=== PATIENT | female | born 1935 | race Caucasian/White ===

== ENCOUNTER 2017-06-23 13:25 | Emergency (ER) | payer OTHER ==
[2017-06-23 13:55] VITALS: TEMP 98.5; O2SAT 94
--- NOTE | 2017-06-23 14:28 | ED.PDOC ---
History of Present Illness - General Chief Complaint: Lower Extremity Injury Stated Complaint: left ankle pain Time Seen by Provider: 06/23/17 14:03 Source: patient Exam Limitations: no limitations - History of Present Illness Initial Comments: PT PRESENTS TO ED DUE TO FOOT PAIN S/P A SLIP AND FALL ON ICE YESTERDAY. PT REPORTS THAT PAIN HAS NOT IMPROVED. PT REPORTS TAKING TYLENOL THIS AM. Occurred: yesterday Pain - Lower Extremity: severe: Left Foot Method of Injury: fell Improving Factors: immobilization, medication, rest Worsening Factors: movement Allergies/Adverse Reactions: Allergies NO KNOWN ALLERGY Allergy (Verified 06/23/17 13:55) Home Medications: Ambulatory Orders Tramadol-Acetaminophen [Ultracet] 1 - 2 tab PO Q6HR PRN #30 tab 06/23/17 Review of Systems - Review of Systems Constitutional: Denies: chills, fever EENTM: Denies: double vision, nose congestion Respiratory: Denies: cough, short of breath Cardiology: Denies: chest pain, palpitations Musculoskeletal: States: see HPI, joint pain, joint swelling Past Medical History (General) - Patient Medical History Hx Gastroesophageal Reflux: Yes Surgical History: tonsillectomy, other - Vaccination History Hx Influenza Vaccination: No Hx Pneumococcal Vaccination: Yes - Social History Hx Tobacco Use: No Hx Alcohol Use: No Hx Substance Use: No Hx Substance Use Treatment: No Hx Depression: No - Female History Patient is a Female of Child Bearing Age (10 -59 yrs old): No Family Medical History - Family History Mother Family History: Unknown Physical Exam - Physical Exam General Appearance: Alert, No apparent distress, Well Developed, Well Groomed, Well Hydrated, Well Nourished Eyes, Ears, Nose, Throat: normal ENT inspection Neck: normal inspection Thigh/Hip: normal inspection, no evidence of injury Leg: normal inspection, no evidence of injury Knee: normal inspection, no evidence of injury Ankle: normal inspection, no evidence of injury Foot: bone tenderness - ALONG THE LEFT 4TH AND 5TH METATARSAL BONE, ecchymosis - TO THE DORSUM OF LEFT FOOT, swelling - TO THE DORSAL LATERAL ASPECT OF THE LEFT FOOT Neuro/Tendon: normal sensation, normal motor functions, normal tendon functions Mental Status: alert, oriented x 3 Skin: normal color, warm/dry Progress - Progress Progress: 06/23/17 16:03 PT RESTING COMFORTABLY, XRAY FINDINGS DISCUSSED. SPLINT APPLIED BY NURSING. CHECKED BY ME, PT REMAINS NEURO VASCULAR INTACT DISTALLY. - EKG/XRAY/CT XRAY: FOOT- NO FRACTURE/DISLOCATION, PER RAD Departure - Departure Clinical Impression: Sprain of left ankle or foot, Contusion of left foot Time of Disposition: 16:05 Disposition: Discharge to Home or Self Care Condition: Good Departure Forms: ED Discharge - Pt. Copy, Patient Portal Self Enrollment Instructions: DI for Foot Sprain, DI for Contusion Activity: increase activity as tolerated, walking as tolerated Referrals: Jaya Levi MD [Active Staff] - 1 Week Prescriptions: Tramadol-Acetaminophen [Ultracet] 1 - 2 tab PO Q6HR PRN #30 tab PRN Reason: Pain Home Medications: Ambulatory Orders Tramadol-Acetaminophen [Ultracet] 1 - 2 tab PO Q6HR PRN #30 tab 06/23/17
--- NOTE | 2017-06-23 16:02 | RAD ---
EXAM DESCRIPTION: Foot,Left 3 Views CLINICAL HISTORY: 81 years, Female, trauma COMPARISON: None. FINDINGS: Three views of left foot were performed. Soft tissue swelling involves the dorsal aspect of the greatest along the distal metatarsal level. No radiopaque foreign body. Bone mineralization is decreased. No acute fracture is identified. Bony alignment is maintained. IMPRESSION: Left foot soft tissue contusion. No radiopaque foreign body or underlying bony injury. Electronically signed by: Maliha Mares MD 06/23/2017 4:01 PM [facility]
[2017-06-23 16:55] VITALS: BP 145/88
== END 2017-06-23 16:55 | disposition home or self-care (01) ==
LOC: ER 13:25
DX: S93.402A Sprain of unspecified ligament of left ankle, initial encounter (principal); S90.32XA Contusion of left foot, initial encounter; W00.0XXA Fall on same level due to ice and snow, initial encounter; Y92.9 Unspecified place or not applicable